=== PATIENT | male | born 1965 | race Hispanic/Latino ===

== ENCOUNTER 2017-06-20 12:54 | Emergency (ER) | payer BC ==
[2017-06-20 13:00] VITALS: BP 98/65; PULSE 64; RESP 14; TEMP 97.6; O2SAT 100
[2017-06-20] MEDS ORDERED: TDAP Vaccine 0.5 mL Syr IM ONE (13:59)
--- NOTE | 2017-06-20 14:22 | ED PDOC ---
Arrival/HPI - General Chief Complaint: Trauma Time Seen by Provider: 06/20/17 13:59 Historian: Patient - History of Present Illness Narrative History of Present Illness (Text): 52y/o male w/ no sig pmhx presents s/p accidental mechanical trip and fall forward while holding a glass in his rt. hand, + collapse , + point of impact with ground being his forehead , right side, w/ 2 x < 3 cm lacerations, as well rt ulnar region of ofrearm abrasion, and rt hip abrasion. USOH xpast 2 weeks. 06/20/17 14:19 06/20/17 14:39 Time/Duration: Prior to Arrival Symptom Onset: Sudden Symptom Course: Improving Context: Walking Past Medical History - Provider Review Nursing Documentation Reviewed: Yes - Infectious Disease Hx of Infectious Diseases: None - Cardiac Hx Cardiac Disorders: Yes Hx Hypertension: Yes - Pulmonary Hx Pulmonary Edema: No - Neurological Hx Paralysis: No - Renal Hx Renal Disorder: No - Endocrine/Metabolic Hx Diabetes Mellitus Type 1: No - Hematological/Oncological Hx Leukemia: No - Integumentary Hx Cellulitis: No - Gastrointestinal Hx Colostomy: No - Genitourinary/Gynecological Hx Genitourinary Disorders: No - Psychiatric Hx Bipolar Disorder: No Hx Substance Use: No - Anesthesia Hx Anesthesia: No Family/Social History - Physician Review Nursing Documentation Reviewed: Yes Family/Social History: No Known Family HX Smoking Status: Former Smoker Hx Alcohol Use: No Hx Substance Use: No Allergies/Home Meds Allergies/Adverse Reactions: Allergies No Known Allergies Allergy (Verified 06/20/17 12:56) Home Medications: Home Meds Medication Instructions Recorded Confirmed Lisinopril [Zestril] 20 mg PO DAILY 06/20/17 06/20/17 Review of Systems - Physician Review All systems were reviewed & negative as marked: Yes - Review of Systems Constitutional: Normal Eyes: Normal ENT: Normal Respiratory: Normal Cardiovascular: Normal Gastrointestinal: Normal Genitourinary Male: Normal Musculoskeletal: Normal Skin: Laceration, Other (abrasions) Neurological: Normal Endocrine: Normal Hemo/Lymphatic: Normal Psychiatric: Normal Physical Exam Vital Signs Reviewed: Yes Vital Signs Temp Pulse Resp BP Pulse Ox 06/20/17 12:55 97.6 F 64 14 98/65 L 100 Temperature: Afebrile Blood Pressure: Normal Pulse: Regular Respiratory Rate: Normal Appearance: Positive for: Well-Appearing, Non-Toxic, Comfortable Pain Distress: None Mental Status: Positive for: Alert and Oriented X 3 - Systems Exam Head: Present: Normocephalic, Contusion, Laceration, Other (2 cm and 3 cm laerations, to the right of forehead, no underlying bony ttp /stepoffs /hematma nor signs of otorrhea/basilar skull injury, [place] head ct criteria) Pupils: Present: PERRL Extroacular Muscles: Present: EOMI Conjunctiva: Present: Normal Mouth: Present: Moist Mucous Membranes Neck: Present: Normal Range of Motion, Other (nexus cervical ct criteria criteria (-) ) Respiratory/Chest: Present: Clear to Auscultation, Good Air Exchange. No: Respiratory Distress, Accessory Muscle Use Cardiovascular: Present: Regular Rate and Rhythm, Normal S1, S2. No: Murmurs Abdomen: Present: Normal Bowel Sounds. No: Tenderness, Distention, Peritoneal Signs Back: Present: Normal Inspection Upper Extremity: Present: Normal Inspection. No: Cyanosis, Edema Lower Extremity: Present: Normal Inspection. No: Edema Neurological: Present: GCS=15, CN II-XII Intact, Speech Normal, Motor Func Grossly Intact, Normal Sensory Function, Normal Cerebellar Funct, Norm Deep Tendon Reflexes, Gait Normal, Memory Normal Skin: Present: Warm, Dry, Normal Color. No: Rashes Psychiatric: Present: Alert, Oriented x 3, Normal Insight, Normal Concentration Medical Decision Making ED Course and Treatment: 06/20/17 14:33 Progress Notes: PROCEDURE: LACERATION REPAIR Performed by the emergency provider Location: 2 cuts on the right lateral frontal forehead Length: 1.5 cm each total 3.0 inches Description: {"clean wound edges","no foreign bodies"} Distal CMS: Normal. No deficits. Neurovascularly intact. Anesthesia: 1 cc Lidocaine 1% Preparation: The wound was cleaned with 1000 cc saline and Betadyne. The area was prepped and draped in the usual sterile fashion. Exploration: The wound was explored and no visible or palpable foreign bodies were found. Procedure: The wound was closed with 6-0 nylon. There was good approximation. In total, 7 stitches were used. Post-Procedure: Good closure and hemostasis. The patient tolerated the procedure well and there were no complications. CSM remains intact. Post procedure bacitracin and dressing applied. The patient is advised to come back to the emergency department for 5-6 days for suture removal. - Medication Orders Current Medication Orders: Discontinued Medications Tetanus/Reduced Diphtheria/Acell Pertussis (Boostrix Vaccine Inj) 0.5 ml IM .ONCE ONE Stop: 06/20/17 14:00 - Scribe Statement The provider has reviewed the documentation as recorded by the Scribe Ashtyn Nielsen Provider Scribe Attestation: All medical record entries made by the Scribe were at my direction and personally dictated by me. I have reviewed the chart and agree that the record accurately reflects my personal performance of the history, physical exam, medical decision making, and the department course for this patient. I have also personally directed, reviewed, and agree with the discharge instructions and disposition. Disposition/Present on Arrival - Present on Arrival Any Indicators Present on Arrival: No History of DVT/PE: No History of Uncontrolled Diabetes: No Urinary Catheter: No History of Decub. Ulcer: No History Surgical Site Infection Following: None - Disposition Have Diagnosis and Disposition been Completed?: Yes Diagnosis: Facial laceration, Head trauma Disposition: HOME/ ROUTINE Disposition Time: 14:47 Patient Plan: Discharge Condition: GOOD Discharge Instructions (ExitCare): Facial Laceration (ED), Stitches Removal (ED ) Print Language: HUNGARIAN Additional Instructions: Please return in 7 days to have your sutures removed. To the ER or with your doctor. [place] earlier for any signs of infection (pustulent draiange/ spreading redness/ increasig pain ) . Referrals: Ramez Rivera MD [Primary Care Provider] - Follow up with primary Forms: reQall (Greenlandic)
== END 2017-06-20 15:11 | disposition home or self-care (01) ==
LOC: ED 12:54
DX: S01.81XA Laceration without foreign body of other part of head, initial encounter (principal); W01.110A Fall on same level from slipping, tripping and stumbling with subsequent striking against sharp glass, initial encounter; Y92.89 Other specified places as the place of occurrence of the external cause